=== PATIENT | female | born 1995 | race Caucasian/White ===

== ENCOUNTER 2019-03-04 04:27 | Inpatient (IN) | payer BC ==
[2019-03-04] MEDS ORDERED: Adacel (T-DAP) 0.5 ML SYRINGE ONE (04:33)
[2019-03-04] MEDS ORDERED: Lidocaine 1% (PF) 30 ML VIAL ONE (04:38)
[2019-03-04] MEDS ORDERED: Bupivacaine 0.5% 10 ML VIAL ONE (04:38)
[2019-03-04] MEDS ORDERED: Fentanyl 100 MCG/2 ML VIAL ONE ×2 (05:04→08:24)
[2019-03-04 06:03] LABS: Hemoglobin 11.1 g/dL (12.0-16.0); Mean Corpuscular Hemoglobin 25.8 pg (27.0-31.0); Mean Corpuscular Volume 78.2 fL (78.0-98.0); Mean Platelet Volume 7.2 fL (7.4-10.4); Platelet Count 343 thou/uL (130-400); RBC Distribution Width 13.1 % (11.5-14.5); Red Blood Cell (RBC) Count 4.32 mill/uL (4.20-5.40); White Blood Cell (WBC) Count 21.7 thou/uL (4.8-10.8)
[2019-03-04 06:07] LABS: BHCG - Serum Negative (NEGATIVE); Pregs Control Background? CLEAR/WHITE (CLR/WHITE); Pregs Control Bar Appear? YES (CONTROL BAR)
[2019-03-04 06:15] LABS: ALT (SGPT) 20 U/L (8-55); AST (SGOT) 26 U/L (5-34); Albumin 4.2 g/dL (3.5-5.0); Alkaline Phosphatase 85 U/L (40-150); Anion Gap 17 mmol/L (10-20); BUN (Urea Nitrogen) 9 mg/dL (7.0-18.7); Bilirubin, Total 0.3 mg/dL (0.2-1.2); Calc. Creatinine Clearance 0 mL/min (70-130); Calcium 9.4 mg/dL (7.8-10.44); Carbon Dioxide 17 mmol/L (22-29); Chloride 103 mmol/L (98-107); Estimated GFR-MDRD Greater than 90; Globulin 3.2 g/dL (2.4-3.5); Glucose 95 mg/dL (70-105); Potassium 3.5 mmol/L (3.5-5.1); Protein, Total 7.4 g/dL (6.0-8.3); Sodium 133 mmol/L (136-145)
[2019-03-04 06:29] LABS: Band 8 % (5-11); Lymphocytes 8 % (21-51); MDiff Complete? YES; Monocytes 4 % (0-10); Neutrophil 80 % (42-75)
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
[2019-03-04] MEDS ORDERED: Neomycin-Polymyxin 1 ML AMP ONE (08:08)
[2019-03-04] MEDS ORDERED: Acetaminophen 500 MG TAB ONE (08:10)
[2019-03-04] MEDS ORDERED: Midazolam HCl 2 mg/2 ml Vial ONE (08:24)
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
[2019-03-04] MEDS ORDERED: Bupivacaine PF 0.5% 30 ML VIAL ONE (08:57)
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
[2019-03-04] MEDS ORDERED: Fentanyl 100 MCG/2 ML VIAL SLOW IVP PRN (09:35)
[2019-03-04] MEDS ORDERED: Ondansetron PF 4 MG/2 ML Vial IVP PRN (09:35)
[2019-03-04] MEDS ORDERED: HYDROcodone/Acetaminophen 5/325 mg Tablet PO PRN (09:35)
[2019-03-04] MEDS ORDERED: TETANUS AND DIPHTHERIA TOX/PF 0.5 ML DISP.SYRIN IM SCH (09:45)
[2019-03-04] MEDS ORDERED: Communication Order-Pharmacy FS SCH (09:45)
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
[2019-03-04 10:58] VITALS: BMI 47.0
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
[2019-03-04] MEDS: Acetaminophen 500 MG TAB PO SCH ×3 (11:43→22:23)
[2019-03-04] MEDS: Ibuprofen 800 MG TAB PO SCH ×2 (11:43→18:10)
[2019-03-04] MEDS: CEFAZOLIN 2 GM in Premix Bag 1 BAG IVPB SCH ×2 (11:43→21:51)
[2019-03-04] MEDS: traMADol HCl 50 MG TAB PO PRN (12:54)
[2019-03-04] MEDS: Gabapentin 300 MG CAP PO SCH ×2 (14:18→21:50)
[2019-03-04] MEDS: Morphine 2 MG/ML SYRINGE SLOW IVP PRN ×3 (14:18→22:28)
[2019-03-04] MEDS ORDERED: ISOVUE-370 76%-LOCM 1 ML ONE (16:04)
[2019-03-04] MEDS ORDERED: Dexamethasone 20 MG/5 ML VIAL ONE (16:38)
[2019-03-04] MEDS ORDERED: PROPOFOL 200 MG/20 ML VIAL ONE (16:38)
[2019-03-04] MEDS ORDERED: Ondansetron PF 4 MG/2 ML Vial ONE (16:38)
[2019-03-04] MEDS ORDERED: Lidocaine 1% PF 5 ML VIAL ONE (16:38)
[2019-03-04] MEDS ORDERED: Ketorolac Tromethamine 30 MG/ML VIAL ONE (16:38)
[2019-03-04] MEDS: Senokot S 8.6-50 MG TAB PO SCH (21:50)
[2019-03-04] MEDS: Famotidine 20 MG TAB PO SCH (21:50)
[2019-03-05] MEDS: Ibuprofen 800 MG TAB PO SCH ×3 (02:46→19:36)
[2019-03-05] MEDS: Morphine 2 MG/ML SYRINGE SLOW IVP PRN ×3 (05:51→21:00)
[2019-03-05] MEDS: Acetaminophen 500 MG TAB PO SCH ×5 (05:51→23:13)
[2019-03-05] MEDS: CEFAZOLIN 2 GM in Premix Bag 1 BAG IVPB SCH ×3 (06:00→20:53)
[2019-03-05 06:02] LABS: #Eosinphils 0.1 thou/uL (0.0-0.7); #Lymphocytes 2.7 thou/uL (1.20-3.40); #Monocytes 0.7 thou/uL (0.11-0.59); #Neutrophils 4.2 thou/uL (1.40-6.50); %Basophils 0.6 % (0.0-1.0); %Eosinophils 1.9 % (0.0-10.0); %Lymphocytes 34.2 % (21.0-51.0); %Monocytes 8.9 % (0.0-10.0); %Neutrophils 54.5 % (42.0-75.0); Hemoglobin 9.8 g/dL (12.0-16.0); Mean Corpuscular HGB CONC 31.4 g/dL (32.0-36.0); Mean Corpuscular Hemoglobin 25.7 pg (27.0-31.0); Mean Corpuscular Volume 81.6 fL (78.0-98.0); Mean Platelet Volume 7.6 fL (7.4-10.4); Platelet Count 228 thou/uL (130-400); RBC Distribution Width 13.2 % (11.5-14.5); Red Blood Cell (RBC) Count 3.83 mill/uL (4.20-5.40); White Blood Cell (WBC) Count 7.8 thou/uL (4.8-10.8)
[2019-03-05 06:24] LABS: Anion Gap 13 mmol/L (10-20); BUN (Urea Nitrogen) 9 mg/dL (7.0-18.7); Calc. Creatinine Clearance 249 mL/min (70-130); Calcium 8.6 mg/dL (7.8-10.44); Carbon Dioxide 21 mmol/L (22-29); Chloride 105 mmol/L (98-107); Estimated GFR-MDRD Greater than 90; Glucose 77 mg/dL (70-105); Magnesium 2.1 mg/dL (1.6-2.6); Phosphorus 3.8 mg/dL (2.3-4.7); Potassium 3.9 mmol/L (3.5-5.1); Sodium 135 mmol/L (136-145)
[2019-03-05] MEDS: Gabapentin 300 MG CAP PO SCH ×3 (10:33→20:52)
[2019-03-05] MEDS: Senokot S 8.6-50 MG TAB PO SCH ×2 (10:33→20:52)
[2019-03-05] MEDS: Polyethylene Glycol 3350 17 GM Packet PO SCH (10:33)
[2019-03-05] MEDS: Famotidine 20 MG TAB PO SCH ×2 (10:33→20:52)
[2019-03-05] MEDS ORDERED: traMADol HCl 50 MG TAB PO PRN (11:02)
[2019-03-05] MEDS: traMADol HCl 50 MG TAB PO PRN (11:12)
[2019-03-05] MEDS: traMADol HCl 50 MG TAB PO SCH ×3 (13:03→23:13)
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
[2019-03-06] MEDS: Ibuprofen 800 MG TAB PO SCH ×3 (02:24→19:32)
[2019-03-06] MEDS: Morphine 2 MG/ML SYRINGE SLOW IVP PRN (03:51)
[2019-03-06] MEDS: CEFAZOLIN 2 GM in Premix Bag 1 BAG IVPB SCH ×2 (04:00→13:15)
[2019-03-06] MEDS: traMADol HCl 50 MG TAB PO SCH ×3 (05:47→17:20)
[2019-03-06] MEDS: Acetaminophen 500 MG TAB PO SCH (05:47)
[2019-03-06] MEDS: Cephalexin 250 MG CAP PO SCH ×3 (09:25→20:44)
[2019-03-06] MEDS: Senokot S 8.6-50 MG TAB PO SCH ×2 (09:26→20:44)
[2019-03-06] MEDS: Famotidine 20 MG TAB PO SCH ×2 (09:27→20:44)
[2019-03-06] MEDS: Gabapentin 300 MG CAP PO SCH ×3 (09:27→20:44)
[2019-03-06] MEDS: Polyethylene Glycol 3350 17 GM Packet PO SCH (09:27)
[2019-03-06] MEDS ORDERED: Acetaminophen 325 MG/10.15 ML UDCUP PO SCH (10:30)
[2019-03-06] MEDS: Acetaminophen 325 MG TAB PO SCH ×2 (11:51→17:20)
[2019-03-06] MEDS: HYDROcodone/Acetaminophen 5/325 mg Tablet PO PRN ×2 (13:14→19:31)
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
[2019-03-07] MEDS: Acetaminophen 325 MG TAB PO SCH ×3 (00:29→12:12)
[2019-03-07] MEDS: traMADol HCl 50 MG TAB PO SCH ×3 (00:30→12:16)
[2019-03-07] MEDS: Ibuprofen 800 MG TAB PO SCH ×2 (04:15→12:10)
[2019-03-07] MEDS: HYDROcodone/Acetaminophen 5/325 mg Tablet PO PRN ×2 (08:25→12:11)
[2019-03-07] MEDS: Gabapentin 300 MG CAP PO SCH (08:29)
[2019-03-07] MEDS: Famotidine 20 MG TAB PO SCH (08:29)
[2019-03-07] MEDS: Cephalexin 250 MG CAP PO SCH (08:29)
[2019-03-07] MEDS: Polyethylene Glycol 3350 17 GM Packet PO SCH (08:32)
[2019-03-07] MEDS: Senokot S 8.6-50 MG TAB PO SCH (08:32)
[2019-03-07 11:43] VITALS: BP 122/73; TEMP 98.6
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
--- NOTE | 2019-03-09 00:24 | HP ---
Job ID: [id number]
== END 2019-03-07 12:58 | disposition home or self-care (01) | DRG 906 ==
LOC: ERS 04:27 → SJJU 09:59
PROVIDERS: ADMIT Orthopaedic Surgery; ATTEND Orthopaedic Surgery
PROC: 0X6P0Z3 Detachment at Left Index Finger, Low, Open Approach (ICD-10-PCS; principal; 2019-03-04)
PROC: 0X6R0Z3 Detachment at Left Middle Finger, Low, Open Approach (ICD-10-PCS; 2019-03-04)
PROC: 0XQCXZZ Repair Left Elbow Region, External Approach (ICD-10-PCS; 2019-03-04)
PROC: 0R9M0ZZ Drainage of Left Elbow Joint, Open Approach (ICD-10-PCS; 2019-03-04)
DX: S68.121A Partial traumatic metacarpophalangeal amputation of left index finger, initial encounter (principal); S68.123A Partial traumatic metacarpophalangeal amputation of left middle finger, initial encounter; S51.022A Laceration with foreign body of left elbow, initial encounter; V49.40XA Driver injured in collision with unspecified motor vehicles in traffic accident, initial encounter; Y92.9 Unspecified place or not applicable
CPT/HCPCS: 36415; 70450; 71045; 71260; 72125; 74177; 80048; 80053; 83735; 84100; 84703; 85025; 86850; 86870; 86900; 86901; 86905; 86922; 90471; 90715; 96374; 96375; G0390; J0690; J1100; J1885; J2001; J2250; J2270; J2405; J2704; J3010; J3490; Q9966; S0020